=== PATIENT | female | born 1960 | race Hispanic/Latino ===

== ENCOUNTER → 2021-08-16 | Outpatient (RCR) | payer MEDICARE | LOC: WCC 08-09 12:54 | PROVIDERS: ATTEND Family Medicine Adult Medicine | DX: E11.621 Type 2 diabetes mellitus with foot ulcer (principal); E11.628 Type 2 diabetes mellitus with other skin complications; L97.426 Non-pressure chronic ulcer of left heel and midfoot with bone involvement without evidence of necrosis; L97.811 Non-pressure chronic ulcer of other part of right lower leg limited to breakdown of skin; L97.821 Non-pressure chronic ulcer of other part of left lower leg limited to breakdown of skin; I87.311 Chronic venous hypertension (idiopathic) with ulcer of right lower extremity; I87.312 Chronic venous hypertension (idiopathic) with ulcer of left lower extremity; R60.0 Localized edema; I87.2 Venous insufficiency (chronic) (peripheral); I10 Essential (primary) hypertension; I48.20 Chronic atrial fibrillation, unspecified; J44.9 Chronic obstructive pulmonary disease, unspecified; G99.0 Autonomic neuropathy in diseases classified elsewhere; I70.8 Atherosclerosis of other arteries; E78.5 Hyperlipidemia, unspecified; E03.8 Other specified hypothyroidism; G47.33 Obstructive sleep apnea (adult) (pediatric); K21.9 Gastro-esophageal reflux disease without esophagitis; M14.60 Charcot's joint, unspecified site ==

== ENCOUNTER 2021-09-13 14:55 | Outpatient (RCR) | payer MEDICARE ==
[~2021-09-13 14:55] MED LIST: LIDOCAINE VISC 2% SOLN 15 ML UDC ONE; LIDOCAINE/PRILOCAINE 2.5-2.5% KIT ONE; MINERAL OIL/PETROLAT/GLYCERI 6OZ BTL ONE; TRIAMCINOLONE ACET 0.1% CREAM 15 GM TUBE ONE; TRYPSIN/BALSAM PERU/CASTOR OIL ONE
== END 2021-09-16 ==
LOC: WCC 14:55
PROVIDERS: ATTEND Family Medicine Adult Medicine
DX: E11.621 Type 2 diabetes mellitus with foot ulcer (principal); E11.628 Type 2 diabetes mellitus with other skin complications; L97.426 Non-pressure chronic ulcer of left heel and midfoot with bone involvement without evidence of necrosis; L97.811 Non-pressure chronic ulcer of other part of right lower leg limited to breakdown of skin; L97.821 Non-pressure chronic ulcer of other part of left lower leg limited to breakdown of skin; I87.311 Chronic venous hypertension (idiopathic) with ulcer of right lower extremity; I87.312 Chronic venous hypertension (idiopathic) with ulcer of left lower extremity; S81.802A Unspecified open wound, left lower leg, initial encounter; I87.2 Venous insufficiency (chronic) (peripheral); R60.0 Localized edema; S80.822A Blister (nonthermal), left lower leg, initial encounter; I70.8 Atherosclerosis of other arteries; I10 Essential (primary) hypertension; I48.20 Chronic atrial fibrillation, unspecified; E03.8 Other specified hypothyroidism; E78.5 Hyperlipidemia, unspecified; G47.33 Obstructive sleep apnea (adult) (pediatric); G99.0 Autonomic neuropathy in diseases classified elsewhere; J44.9 Chronic obstructive pulmonary disease, unspecified; K21.9 Gastro-esophageal reflux disease without esophagitis; M14.60 Charcot's joint, unspecified site; X58.XXXA Exposure to other specified factors, initial encounter

== ENCOUNTER 2021-10-11 12:31 | Outpatient (RCR) | payer MEDICARE, OTHER ==
[2021-09-27 16:44] LABS: BASOPHILS % 0.2 % (0.0-1.0); EOSINOPHILS # (AUTO) 0.2 (0.0-0.4); EOSINOPHILS % 2.1 % (0.0-6.0); HEMATOCRIT 41.1 % (34.2-44.1); HEMOGLOBIN 12.7 g/dL (12.0-16.0); LYMPHOCYTES # (AUTO) 2.9 (1.0-3.2); MEAN CORPUSCULAR HEMOGLOBIN 26.3 pg (28-32); MEAN CORPUSCULAR HGB CONC 30.9 g/dL (31-35); MEAN CORPUSCULAR VOLUME 85.1 fL (81-99); MONOCYTES # (AUTO) 0.7 (0.2-0.8); MONOCYTES % 7.5 % (4.4-11.3); NEUTROPHILS # (AUTO) 5.3 (2.1-6.9); NEUTROPHILS % 57.9 % (38.7-80.0); PLATELET COUNT 333 x10e3/uL (140-360); RED BLOOD COUNT 4.83 x10e6/uL (3.6-5.1); RED CELL DISTRIBUTION WIDTH 15.7 % (11.7-14.4)
[~2021-10-11 12:31] MED LIST changes: +AMMONIUM LACTATE 12% LOTION 225GM BTL ONE; -LIDOCAINE/PRILOCAINE 2.5-2.5% KIT ONE; +MUPIROCIN 2% OINT 22 GM TUBE ONE; -TRYPSIN/BALSAM PERU/CASTOR OIL ONE
[2021-10-11] MEDS ORDERED: MUPIROCIN 2% OINT 22 GM TUBE ONE (19:42)
[2021-10-11] MEDS ORDERED: AMMONIUM LACTATE 12% LOTION 225GM BTL ONE (19:42)
[2021-10-11] MEDS ORDERED: TRIAMCINOLONE ACET 0.1% CREAM 15 GM TUBE ONE (19:42)
[2021-10-11] MEDS ORDERED: LIDOCAINE VISC 2% SOLN 15 ML UDC ONE (19:42)
== END 2021-10-17 ==
LOC: WCC 12:31
PROVIDERS: ATTEND Family Medicine Adult Medicine
DX: E11.621 Type 2 diabetes mellitus with foot ulcer (principal); E11.628 Type 2 diabetes mellitus with other skin complications; S81.802A Unspecified open wound, left lower leg, initial encounter; I87.312 Chronic venous hypertension (idiopathic) with ulcer of left lower extremity; I87.311 Chronic venous hypertension (idiopathic) with ulcer of right lower extremity; L97.426 Non-pressure chronic ulcer of left heel and midfoot with bone involvement without evidence of necrosis; L97.821 Non-pressure chronic ulcer of other part of left lower leg limited to breakdown of skin; L97.811 Non-pressure chronic ulcer of other part of right lower leg limited to breakdown of skin; I87.2 Venous insufficiency (chronic) (peripheral); R60.0 Localized edema; I10 Essential (primary) hypertension; I48.20 Chronic atrial fibrillation, unspecified; I70.8 Atherosclerosis of other arteries; E78.5 Hyperlipidemia, unspecified; G99.0 Autonomic neuropathy in diseases classified elsewhere; K21.9 Gastro-esophageal reflux disease without esophagitis; E03.8 Other specified hypothyroidism; J44.9 Chronic obstructive pulmonary disease, unspecified; M14.60 Charcot's joint, unspecified site; G47.33 Obstructive sleep apnea (adult) (pediatric); X58.XXXA Exposure to other specified factors, initial encounter
CPT/HCPCS: 36415; 83036; 84134; 85025

== ENCOUNTER 2021-11-01 13:52 | Emergency (ER) | payer MEDICARE ==
[~2021-11-01] VITALS: Ht 170.2 cm; Wt 139.7 kg
[2021-11-01] MEDS ORDERED: ACETAMINOPHEN-1 EAC4 PO (15:40)
== END 2021-11-01 15:54 | disposition home or self-care (01) ==
LOC: ER 14:10
DX: R60.9 Edema, unspecified (principal); E11.9 Type 2 diabetes mellitus without complications; E03.9 Hypothyroidism, unspecified; I48.91 Unspecified atrial fibrillation; I25.2 Old myocardial infarction; Z87.442 Personal history of urinary calculi
CPT/HCPCS: 93971; 99284

== ENCOUNTER 2021-11-08 10:26 | Outpatient (RCR) | payer MEDICARE ==
[~2021-11-08 10:26] MED LIST changes: +ACETAMINOPHEN-1 EAC4 PO; +LIDOCAINE/PRILOCAINE 2.5-2.5% KIT ONE
== END 2021-11-14 ==
LOC: WCC 10:26
PROVIDERS: ATTEND Family Medicine Adult Medicine
DX: E11.621 Type 2 diabetes mellitus with foot ulcer (principal); E11.628 Type 2 diabetes mellitus with other skin complications; L97.426 Non-pressure chronic ulcer of left heel and midfoot with bone involvement without evidence of necrosis; I87.311 Chronic venous hypertension (idiopathic) with ulcer of right lower extremity; I87.312 Chronic venous hypertension (idiopathic) with ulcer of left lower extremity; L97.811 Non-pressure chronic ulcer of other part of right lower leg limited to breakdown of skin; L97.821 Non-pressure chronic ulcer of other part of left lower leg limited to breakdown of skin; I89.0 Lymphedema, not elsewhere classified; I87.2 Venous insufficiency (chronic) (peripheral); R60.0 Localized edema; I48.20 Chronic atrial fibrillation, unspecified; I10 Essential (primary) hypertension; E78.5 Hyperlipidemia, unspecified; I70.8 Atherosclerosis of other arteries; E03.8 Other specified hypothyroidism; K21.9 Gastro-esophageal reflux disease without esophagitis; G47.33 Obstructive sleep apnea (adult) (pediatric); G99.0 Autonomic neuropathy in diseases classified elsewhere; J44.9 Chronic obstructive pulmonary disease, unspecified; M14.60 Charcot's joint, unspecified site; X58.XXXA Exposure to other specified factors, initial encounter

== ENCOUNTER → 2022-02-14 | Outpatient (RCR) | payer MEDICARE ==
[~2022-02-14] MED LIST changes: -AMMONIUM LACTATE 12% LOTION 225GM BTL ONE
== END ==
LOC: WCC 01-17 15:08
PROVIDERS: ATTEND Family Medicine Adult Medicine
DX: E11.621 Type 2 diabetes mellitus with foot ulcer (principal); E11.628 Type 2 diabetes mellitus with other skin complications; L97.426 Non-pressure chronic ulcer of left heel and midfoot with bone involvement without evidence of necrosis; S81.802A Unspecified open wound, left lower leg, initial encounter; I87.2 Venous insufficiency (chronic) (peripheral); I89.0 Lymphedema, not elsewhere classified; S70.212A Abrasion, left hip, initial encounter; R60.0 Localized edema; I10 Essential (primary) hypertension; I70.8 Atherosclerosis of other arteries; E78.5 Hyperlipidemia, unspecified; E03.8 Other specified hypothyroidism; G47.33 Obstructive sleep apnea (adult) (pediatric); G99.0 Autonomic neuropathy in diseases classified elsewhere; I48.20 Chronic atrial fibrillation, unspecified; J44.9 Chronic obstructive pulmonary disease, unspecified; K21.9 Gastro-esophageal reflux disease without esophagitis; M14.60 Charcot's joint, unspecified site; W06.XXXA Fall from bed, initial encounter; X58.XXXA Exposure to other specified factors, initial encounter

== ENCOUNTER 2022-03-14 12:00 | Outpatient (RCR) | payer MEDICARE ==
[~2022-03-14 12:00] MED LIST changes: -LIDOCAINE/PRILOCAINE 2.5-2.5% KIT ONE
[2022-03-14] MEDS ORDERED: MINERAL OIL/PETROLAT/GLYCERI 6OZ BTL ONE ×2 (12:12→13:00)
[2022-03-14] MEDS ORDERED: TRIAMCINOLONE ACET 0.1% CREAM 15 GM TUBE ONE ×2 (12:12→13:00)
== END 2022-03-16 ==
LOC: WCC 12:00
PROVIDERS: ATTEND Family Medicine Adult Medicine
DX: E11.621 Type 2 diabetes mellitus with foot ulcer (principal); E11.628 Type 2 diabetes mellitus with other skin complications; L97.426 Non-pressure chronic ulcer of left heel and midfoot with bone involvement without evidence of necrosis; S81.802A Unspecified open wound, left lower leg, initial encounter; R60.0 Localized edema; I87.2 Venous insufficiency (chronic) (peripheral); I10 Essential (primary) hypertension; E78.5 Hyperlipidemia, unspecified; G47.33 Obstructive sleep apnea (adult) (pediatric); G99.0 Autonomic neuropathy in diseases classified elsewhere; I48.20 Chronic atrial fibrillation, unspecified; I70.8 Atherosclerosis of other arteries; I89.0 Lymphedema, not elsewhere classified; J44.9 Chronic obstructive pulmonary disease, unspecified; K21.9 Gastro-esophageal reflux disease without esophagitis; M14.60 Charcot's joint, unspecified site; W06.XXXA Fall from bed, initial encounter; X58.XXXA Exposure to other specified factors, initial encounter

== ENCOUNTER 2022-04-13 14:30 | Outpatient (RCR) | payer MEDICARE ==
[~2022-04-13 14:30] MED LIST changes: -LIDOCAINE VISC 2% SOLN 15 ML UDC ONE; -MUPIROCIN 2% OINT 22 GM TUBE ONE; -TRIAMCINOLONE ACET 0.1% CREAM 15 GM TUBE ONE
== END 2022-04-16 ==
LOC: WCC 14:30
PROVIDERS: ATTEND Family Medicine Adult Medicine
DX: E11.621 Type 2 diabetes mellitus with foot ulcer (principal); E11.628 Type 2 diabetes mellitus with other skin complications; L97.426 Non-pressure chronic ulcer of left heel and midfoot with bone involvement without evidence of necrosis; R60.0 Localized edema; I89.0 Lymphedema, not elsewhere classified; I10 Essential (primary) hypertension; E78.5 Hyperlipidemia, unspecified; J44.9 Chronic obstructive pulmonary disease, unspecified; G99.0 Autonomic neuropathy in diseases classified elsewhere; G89.11 Acute pain due to trauma; I48.20 Chronic atrial fibrillation, unspecified; I70.8 Atherosclerosis of other arteries; E03.8 Other specified hypothyroidism; I87.2 Venous insufficiency (chronic) (peripheral); K21.9 Gastro-esophageal reflux disease without esophagitis; M14.60 Charcot's joint, unspecified site; G47.33 Obstructive sleep apnea (adult) (pediatric); W07.XXXA Fall from chair, initial encounter; W06.XXXA Fall from bed, initial encounter; X58.XXXA Exposure to other specified factors, initial encounter

== ENCOUNTER 2022-05-15 15:11 | Outpatient (RCR) | payer MEDICARE ==
[~2022-05-15 15:11] MED LIST changes: +MUPIROCIN 2% OINT 22 GM TUBE ONE; +TRIAMCINOLONE ACET 0.1% CREAM 15 GM TUBE ONE
== END 2022-05-17 ==
LOC: WCC 15:11
PROVIDERS: ATTEND Family Medicine Adult Medicine
DX: E11.621 Type 2 diabetes mellitus with foot ulcer (principal); E11.628 Type 2 diabetes mellitus with other skin complications; L97.426 Non-pressure chronic ulcer of left heel and midfoot with bone involvement without evidence of necrosis; I87.2 Venous insufficiency (chronic) (peripheral); I89.0 Lymphedema, not elsewhere classified; R60.0 Localized edema; I10 Essential (primary) hypertension; I70.8 Atherosclerosis of other arteries; I48.20 Chronic atrial fibrillation, unspecified; J44.9 Chronic obstructive pulmonary disease, unspecified; G47.33 Obstructive sleep apnea (adult) (pediatric); E78.5 Hyperlipidemia, unspecified; E03.8 Other specified hypothyroidism; G89.11 Acute pain due to trauma; K21.9 Gastro-esophageal reflux disease without esophagitis; G99.0 Autonomic neuropathy in diseases classified elsewhere; M14.60 Charcot's joint, unspecified site
CPT/HCPCS: 36415; 82948

== ENCOUNTER 2022-06-15 10:12 | Outpatient (RCR) | payer MEDICARE ==
[~2022-06-15 10:12] MED LIST changes: +LIDOCAINE VISC 2% SOLN 15 ML UDC ONE; +LIDOCAINE/PRILOCAINE 2.5-2.5% KIT ONE
== END 2022-06-16 ==
LOC: WCC 10:12
PROVIDERS: ATTEND Family Medicine Adult Medicine
DX: E11.621 Type 2 diabetes mellitus with foot ulcer (principal); E11.628 Type 2 diabetes mellitus with other skin complications; L97.426 Non-pressure chronic ulcer of left heel and midfoot with bone involvement without evidence of necrosis; S81.802A Unspecified open wound, left lower leg, initial encounter; I87.2 Venous insufficiency (chronic) (peripheral); I89.0 Lymphedema, not elsewhere classified; R60.0 Localized edema; G89.11 Acute pain due to trauma; I10 Essential (primary) hypertension; E03.8 Other specified hypothyroidism; E78.5 Hyperlipidemia, unspecified; G47.33 Obstructive sleep apnea (adult) (pediatric); G99.0 Autonomic neuropathy in diseases classified elsewhere; I48.20 Chronic atrial fibrillation, unspecified; I70.8 Atherosclerosis of other arteries; J44.9 Chronic obstructive pulmonary disease, unspecified; K21.9 Gastro-esophageal reflux disease without esophagitis; M14.60 Charcot's joint, unspecified site; W06.XXXA Fall from bed, initial encounter; W07.XXXA Fall from chair, initial encounter; W22.8XXA Striking against or struck by other objects, initial encounter; X58.XXXA Exposure to other specified factors, initial encounter

== ENCOUNTER → 2022-07-17 | Outpatient (RCR) | payer MEDICARE ==
[~2022-07-17] MED LIST changes: -LIDOCAINE/PRILOCAINE 2.5-2.5% KIT ONE; +MINERAL OIL/PETROLAT/GLYCERI 2OZ CRM ONE
== END ==
LOC: WCC 06-22 13:45
PROVIDERS: ATTEND Family Medicine Adult Medicine
DX: E11.621 Type 2 diabetes mellitus with foot ulcer (principal); E11.628 Type 2 diabetes mellitus with other skin complications; L97.426 Non-pressure chronic ulcer of left heel and midfoot with bone involvement without evidence of necrosis; S81.802A Unspecified open wound, left lower leg, initial encounter; I87.2 Venous insufficiency (chronic) (peripheral); I70.8 Atherosclerosis of other arteries; I89.0 Lymphedema, not elsewhere classified; R60.0 Localized edema; G89.11 Acute pain due to trauma; I10 Essential (primary) hypertension; I48.20 Chronic atrial fibrillation, unspecified; E03.8 Other specified hypothyroidism; E78.5 Hyperlipidemia, unspecified; G47.33 Obstructive sleep apnea (adult) (pediatric); G99.0 Autonomic neuropathy in diseases classified elsewhere; J44.9 Chronic obstructive pulmonary disease, unspecified; K21.9 Gastro-esophageal reflux disease without esophagitis; M14.60 Charcot's joint, unspecified site; W06.XXXA Fall from bed, initial encounter; W07.XXXA Fall from chair, initial encounter; W22.8XXA Striking against or struck by other objects, initial encounter; X58.XXXA Exposure to other specified factors, initial encounter
CPT/HCPCS: 87081

== ENCOUNTER 2022-08-14 13:21 | Outpatient (RCR) | payer MEDICARE ==
[~2022-08-14 13:21] MED LIST changes: -MUPIROCIN 2% OINT 22 GM TUBE ONE
== END 2022-08-16 ==
LOC: WCC 13:21
PROVIDERS: ATTEND Family Medicine Adult Medicine
DX: E11.621 Type 2 diabetes mellitus with foot ulcer (principal); E11.628 Type 2 diabetes mellitus with other skin complications; L97.426 Non-pressure chronic ulcer of left heel and midfoot with bone involvement without evidence of necrosis; S41.109A Unspecified open wound of unspecified upper arm, initial encounter; S81.802A Unspecified open wound, left lower leg, initial encounter; I87.2 Venous insufficiency (chronic) (peripheral); I89.0 Lymphedema, not elsewhere classified; R60.0 Localized edema; L53.9 Erythematous condition, unspecified; L98.9 Disorder of the skin and subcutaneous tissue, unspecified; G89.11 Acute pain due to trauma; I10 Essential (primary) hypertension; E78.5 Hyperlipidemia, unspecified; I70.8 Atherosclerosis of other arteries; E03.8 Other specified hypothyroidism; G47.33 Obstructive sleep apnea (adult) (pediatric); M14.60 Charcot's joint, unspecified site; G99.0 Autonomic neuropathy in diseases classified elsewhere; I48.20 Chronic atrial fibrillation, unspecified; J44.9 Chronic obstructive pulmonary disease, unspecified; K21.9 Gastro-esophageal reflux disease without esophagitis; W06.XXXA Fall from bed, initial encounter; W07.XXXA Fall from chair, initial encounter; W22.8XXA Striking against or struck by other objects, initial encounter; W26.0XXA Contact with knife, initial encounter; X58.XXXA Exposure to other specified factors, initial encounter

== ENCOUNTER 2022-10-16 13:10 | Outpatient (RCR) | payer MEDICARE, OTHER ==
[~2022-10-16 13:10] MED LIST changes: +FIORINAL 50-321 EACH PO; +GABAPENTIN300 MG PO; +HUMULIN N100 UNIT/1 SQ; +KETOROLAC TROME10 MG PO; +LEVOTHYROXINE175 MCG PO; +LIDOCAINE/PRILOCAINE 2.5-2.5% KIT ONE; +LOSARTAN POTASS25 MG PO; -MINERAL OIL/PETROLAT/GLYCERI 2OZ CRM ONE; +MUPIROCIN 2% OINT 22 GM TUBE ONE; +ULTRAM50 MG PO
[2022-10-17] MEDS ORDERED: OFLOXACIN 0.3% (OTIC SOL) 5 ML BTL ONE (08:21)
== END 2022-10-17 ==
LOC: WCC 13:10 → MERGE 13:10
PROVIDERS: ATTEND Family Medicine Adult Medicine
DX: E11.621 Type 2 diabetes mellitus with foot ulcer (principal); E11.628 Type 2 diabetes mellitus with other skin complications; T23.272A Burn of second degree of left wrist, initial encounter; I87.2 Venous insufficiency (chronic) (peripheral); I89.0 Lymphedema, not elsewhere classified; R60.0 Localized edema; L53.9 Erythematous condition, unspecified; G89.11 Acute pain due to trauma; I10 Essential (primary) hypertension; E78.5 Hyperlipidemia, unspecified; I70.8 Atherosclerosis of other arteries; I48.20 Chronic atrial fibrillation, unspecified; J44.9 Chronic obstructive pulmonary disease, unspecified; E03.8 Other specified hypothyroidism; G47.33 Obstructive sleep apnea (adult) (pediatric); K21.9 Gastro-esophageal reflux disease without esophagitis; M14.60 Charcot's joint, unspecified site; G99.0 Autonomic neuropathy in diseases classified elsewhere; W07.XXXA Fall from chair, initial encounter; W06.XXXA Fall from bed, initial encounter; W22.8XXA Striking against or struck by other objects, initial encounter; X12.XXXA Contact with other hot fluids, initial encounter; X58.XXXA Exposure to other specified factors, initial encounter

== ENCOUNTER 2022-11-09 13:52 | Outpatient (RCR) | payer MEDICARE, OTHER ==
[~2022-11-09 13:52] MED LIST changes: +ACETAMINOPHEN 1000 MG/100 ML 100 ML IV ONE; -LIDOCAINE/PRILOCAINE 2.5-2.5% KIT ONE; -TRIAMCINOLONE ACET 0.1% CREAM 15 GM TUBE ONE
== END 2022-11-14 ==
LOC: WCC 13:52
PROVIDERS: ATTEND Family Medicine Adult Medicine
DX: E11.621 Type 2 diabetes mellitus with foot ulcer (principal); E11.628 Type 2 diabetes mellitus with other skin complications; L97.426 Non-pressure chronic ulcer of left heel and midfoot with bone involvement without evidence of necrosis; S51.802A Unspecified open wound of left forearm, initial encounter; I87.2 Venous insufficiency (chronic) (peripheral); R60.0 Localized edema; I89.0 Lymphedema, not elsewhere classified; R23.9 Unspecified skin changes; G89.11 Acute pain due to trauma; L53.9 Erythematous condition, unspecified; T22.239 Burn of second degree of unspecified upper arm; J44.9 Chronic obstructive pulmonary disease, unspecified; E78.5 Hyperlipidemia, unspecified; G47.33 Obstructive sleep apnea (adult) (pediatric); E03.8 Other specified hypothyroidism; G99.0 Autonomic neuropathy in diseases classified elsewhere; I10 Essential (primary) hypertension; I48.20 Chronic atrial fibrillation, unspecified; I70.8 Atherosclerosis of other arteries; K21.9 Gastro-esophageal reflux disease without esophagitis; M14.60 Charcot's joint, unspecified site; W06.XXXS Fall from bed, sequela; W07.XXXS Fall from chair, sequela; W22.8XXS Striking against or struck by other objects, sequela; W26.0XXS Contact with knife, sequela; X12.XXXS Contact with other hot fluids, sequela; X58.XXXS Exposure to other specified factors, sequela
CPT/HCPCS: 11042 ×2; 29581 ×2; 99213 ×4; J0131

== ENCOUNTER 2023-01-02 08:00 | Outpatient (RCR) | payer MEDICARE, OTHER ==
[~2023-01-02 08:00] MED LIST changes: -ACETAMINOPHEN 1000 MG/100 ML 100 ML IV ONE; -LIDOCAINE VISC 2% SOLN 15 ML UDC ONE
[2023-01-02] MEDS ORDERED: MINERAL OIL/PETROLAT/GLYCERI 6OZ BTL ONE (13:39)
== END 2023-01-14 ==
LOC: WCC 08:00
PROVIDERS: ATTEND Family Medicine Adult Medicine
DX: E11.621 Type 2 diabetes mellitus with foot ulcer (principal); L97.426 Non-pressure chronic ulcer of left heel and midfoot with bone involvement without evidence of necrosis; R60.0 Localized edema; M14.60 Charcot's joint, unspecified site

== ENCOUNTER → 2023-02-27 | Outpatient (CLI) | payer MEDICARE, OTHER ==
[~2023-02-27] MED LIST changes: -MINERAL OIL/PETROLAT/GLYCERI 6OZ BTL ONE; -MUPIROCIN 2% OINT 22 GM TUBE ONE
== END ==
LOC: MAMMO 10:46
PROVIDERS: ATTEND Internal Medicine
DX: Z12.31 Encounter for screening mammogram for malignant neoplasm of breast (principal); Z13.820 Encounter for screening for osteoporosis
CPT/HCPCS: 77067; 77080

== ENCOUNTER 2024-12-12 15:00 | Outpatient (RCR) | payer MEDICARE, OTHER | END 2024-12-15 | LOC: PT 15:00 | PROVIDERS: ATTEND Podiatrist Foot & Ankle Surgery | DX: M25.572 Pain in left ankle and joints of left foot (principal); R26.89 Other abnormalities of gait and mobility ==

== ENCOUNTER 2024-12-19 10:44 | Outpatient (RCR) | payer MEDICARE, OTHER | END 2025-01-14 | LOC: PT 10:44 | PROVIDERS: ATTEND Podiatrist Foot & Ankle Surgery | DX: M25.572 Pain in left ankle and joints of left foot (principal); R26.89 Other abnormalities of gait and mobility ==